=== PATIENT | female | born 1955 | race Caucasian/White ===

== ENCOUNTER → 2018-08-26 17:25 | Outpatient (CLI) | payer MEDICAID ==
[2014-07-06 05:41] VITALS: BMI 42.8
[~2018-08-26 17:25] MED LIST: AMITRIPTYLINE100 MG PO; ANTIVERT25 MG PO; BENICAR20 MG PO; CYCLOBENZAPRINE10 MG PO; GLUCOPHAGE500 MG PO; HYDROCODONE-APA1 TAB PO; LIPITOR40 MG PO; SOMA350 MG PO
== END | disposition home or self-care (01) ==
LOC: D.MAMMO 11:15
DX: Z12.31 Encounter for screening mammogram for malignant neoplasm of breast (principal)

== ENCOUNTER 2020-03-28 14:00 | Outpatient (CLI) | payer MEDICAID ==
[2014-07-06 05:41] VITALS: BMI 42.8
== END 2020-03-28 15:00 | disposition home or self-care (01) ==
LOC: D.MAMMO 14:00
PROVIDERS: ATTEND Family Medicine
DX: N63.11 Unspecified lump in the right breast, upper outer quadrant (principal)